=== PATIENT | male | born 1965 | race Caucasian/White ===

== ENCOUNTER 2019-10-10 18:23 | Emergency (ER) | payer OTHER ==
[~2019-10-10] VITALS: Ht 177.8 cm; Wt 72.0 kg
[~2019-10-10 18:23] MED LIST: ASPI81TA45 PO
[2019-10-10] MEDS ORDERED: LORazepam 2 MG/ML, 1ML ONE (18:40)
--- NOTE | 2019-10-10 18:49 | NUR ---
REPORT FROM ZENAIDA RN ASSUMING CARE OF PT AT THIS TIME
[2019-10-10] MEDS ORDERED: LORazepam 2 MG/ML, 1ML IVPush ONE (19:00)
[2019-10-10 19:05] LABS: BASOPHILS # (AUTO) 0.03 x10^3/uL (0-0.1); BASOPHILS % (AUTO) 1 % (0-1); EOSINOPHILS # (AUTO) 0.14 x10^3/uL (0-0.4); EOSINOPHILS % (AUTO) 3 % (1-7); LYMPHOCYTES # (AUTO) 1.28 x10^3/uL (1-3.4); LYMPHOCYTES % (AUTO) 22 % (22-44); MD NO; MEAN CORPUSCULAR HEMOGLOBIN 29.6 pg (27.5-34.5); MEAN CORPUSCULAR HGB CONC 33.9 g/dL (33.2-36.2); MEAN CORPUSCULAR VOLUME 87.3 fL (81-97); MEAN PLATELET VOLUME 9.2 fL (7.4-10.4); MONOCYTES # (AUTO) 0.33 x10^3/uL (0.2-0.8); MONOCYTES % (AUTO) 6 % (2-9); NEUTROPHILS # (AUTO) 4.04 x10^3/uL (1.8-6.8); NEUTROPHILS % (AUTO) 69 % (42-75); PLATELET COUNT 229 x10^3/uL (130-400); RED BLOOD COUNT 4.76 x10^6/uL (4.38-5.82); RED CELL DISTRIBUTION WIDTH 13.5 % (9.4-14.8)
--- NOTE | 2019-10-10 19:12 | NUR ---
XRAY AT BEDSIDE, FLUIDS STARTED INFUSING W/O DIFFICULTY, PT RESTING ON MORENA HUDSON
[2019-10-10 19:15] LABS: ALANINE AMINOTRANSFERASE 25 U/L (12-78); ALBUMIN 3.8 g/dL (3.4-5.0); ANION GAP 12 mmol/L (5-15); CALCIUM 8.5 mg/dL (8.5-10.1); CHLORIDE 113 mmol/L (98-107); CREATININE 1.23 mg/dL (0.7-1.3)
[2019-10-10 19:19] LABS: ALKALINE PHOSPHATASE 75 U/L (45-117); BILIRUBIN,TOTAL 0.3 mg/dL (0.2-1.0); TOTAL PROTEIN 7.4 g/dL (6.4-8.2); TROPONIN I < 0.015 ng/mL (0.000-0.045)
[2019-10-10] MEDS ORDERED: SODIUM CHLORIDE 0.9% 1,000ML IVBOLUS ONE (19:30)
--- NOTE | 2019-10-10 20:09 | NUR ---
VS UPDATED, PT RESTING ON GURNEY, CARMELON PT BECOMING MORE AROUSABLE TO VERBAL COMMAND, FOLLOWS SOME COMMANDS AT THIS TIME. WILL CONTINUE TO MONITOR
--- NOTE | 2019-10-10 21:05 | NUR ---
PT STILL RESTING ON MORENA HUDSON
--- NOTE | 2019-10-10 21:18 | NUR ---
PT AROUSABLE TO VERBAL STIMULI FOLLOWING DIRECTION, EYES OPEN FAMILY AT BEDSIDE FOR REASSURANCE AT THIS TIME
[2019-10-10 22:20] VITALS: BP 102/76
--- NOTE | 2019-10-10 22:21 | NUR ---
Patient/Caregiver given discharge instructions and they have confirmed that they understand the instructions. Patient ambulatory with steady gait.
== END 2019-10-10 22:22 | disposition home or self-care (01) ==
LOC: ED 20:25
DX: R07.89 Other chest pain (principal); R06.02 Shortness of breath; R41.82 Altered mental status, unspecified; R94.31 Abnormal electrocardiogram [ECG] [EKG]; Z86.73 Personal history of transient ischemic attack (TIA), and cerebral infarction without residual deficits; Z87.891 Personal history of nicotine dependence
CPT/HCPCS: 36415; 71045; 80053; 80307; 84484; 85025; 93005; 96374; 99285; J2060; J7030